=== PATIENT | male | born 1970 | race Caucasian/White ===

== ENCOUNTER 2017-01-30 16:24 | Inpatient (IN) | payer BC ==
--- NOTE | ~2017-01-30 | PREOPHP ---
PreOp History and Physical [facility] [address] [place]. [address] NAME: BEATRICE BARNES : 68 STATUS : DIS IN PAT#: [id number] AGE: 46 ADM/REG DATE : 01/30/17 MR#: [id number] REPORT SERV DATE: 02/05/17 DICTATED BY: GERSON TORRES DATE: 02/01/17 REPORT STATUS : Draft TRANSCRIBED BY: GRAY DATE: 02/01/17 CHIEF COMPLAINT: Intractable back pain. 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 The patient was seen by Josee Huang, physician's front desk assistant, who treated him conservatively. The pain and had an acute flare up and on 01/30/2017 the pain was so intractable he could not stand or walk, could not even get into the wheelchair without maximum assistance. He had some pseudo radiculitis with pain into the thighs, but nothing below the knees. He had no alteration in bowel or bladder function. He has had no falls or trauma. He had no fever, chills, night sweats, or any major recent change in constitutional symptoms. The patient had a stat MRI which showed some disk degeneration and disk protrusions, but nothing causing significant nerve impingement. He was admitted due to severe back pain and also to obtain additional imaging to make sure that there was no proximal compressive pathology that was producing the severe back pain. PAST MEDICAL HISTORY: Hypertension and gastroesophageal reflux disease. He has had multiple esophageal dilations. PAST SURGICAL HISTORY: Appendectomy. CURRENT MEDICATIONS: Lisinopril, tramadol, Nexium. ALLERGIES: NONE. SOCIAL HISTORY: Noted in the chart. See that for detail. FAMILY HISTORY: Unremarkable. REVIEW OF SYSTEMS: Otherwise, negative. PHYSICAL EXAMINATION: GENERAL: He is 6 feet 1 inch, 194 pounds. Alert, cooperative, well oriented. Can usually ambulate independently, although on admission he was in intractable pain. Could not ambulate at all. HEENT: Grossly normal. LUNGS: Clear to auscultation. HEART: Regular and rhythmic. ABDOMEN: Soft with good bowel sounds. No peritoneal signs noted. MUSCULOSKELETAL: The spine itself had no gross deformities. He had no abnormal in the upper extremities. Motor, sensory, reflex exams are normal. Lower extremities, he had proximal weakness, but I think this was pain inhibited. His iliopsoas adductor, abductors were only 3/5, but again I think it is mainly because of pain. His quadriceps gastroc soleus and tibialis anterior all 5/5. Reflexes are 1/4 in the lower extremities, but they are symmetrical. Toes are downgoing. No clonus was noted. No sensory deficits found in the lower extremities. No abnormal behavior is noted. PreOp History and Physical [address] [place]. [address] NAME: BEATRICE BARNES : [birth year] STATUS : DIS IN PAT#: [id number] AGE: 46 ADM/REG DATE : 01/30/17 MR#: [id number] REPORT SERV DATE: 02/05/17 DICTATED BY: GERSON TORRES DATE: 02/01/17 REPORT STATUS : Draft TRANSCRIBED BY: GRAY DATE: 02/01/17 Orthopedically, there was no pain with moving hips, knees, or ankles. There are pulses in all four extremities. No abnormal skin lesions found. ASSESSMENT: Acute intractable low back pain. RECOMMENDATIONS: As listed above. /GRAY Gerson Torres D.O. / [id number] CC: Kurt Gale M.D.
--- NOTE | ~2017-01-30 | DS ---
Discharge Summary [facility] [address] [place]. [address] NAME: BEATRICE BARNES : [birth year] STATUS : DIS IN PAT#: [id number] AGE: 46 ADM/REG DATE : 01/30/17 MR#: [id number] REPORT SERV DATE: 02/05/17 DICTATED BY: GERSON TORRES DATE: 02/01/17 REPORT STATUS : Draft TRANSCRIBED BY: MODL DATE: 02/01/17 ADMISSION DATE: 01/30/2017 DISCHARGE DATE: 02/01/2017 ADMISSION DIAGNOSIS: Acute intractable low back pain. DISCHARGE DIAGNOSIS: Acute intractable low back pain. PROCEDURES: None. CONSULTATIONS: None. Lab and x-ray data in the chart. Briefly, MRI showed disk herniations with left-sided nerve root impingement at C5-6 and C6-7, but no cord compression. HOSPITAL COURSE: The patient was admitted, started on a [employer] pump. Given IV steroid x4 doses. The next days his pain had diminished by a good 50% and he was able to at least sit up at side of the bed, stand, walk to the bathroom. He was seen by Physical Therapy was instructed proper mechanics. On hospital day 2, he was much less. His pain was 75% to 80% better. He was transferring in and out of bed independently, walking to bathroom independently and neurologic exam was normal in both the upper and lower extremities. I reviewed the MRI scans with him. DISPOSITION: He is discharged home with a prescription with Bokoshe 5 mg q.6h p.r.n. for acute pain flare up, Robaxin 500 mg t.i.d. #45, prednisone weaning dose 5 mg over the next seven days and follow up in the office in 1 week. Should be able return to work at that time. We will send him for outpatient physical therapy when he returns to the office. He can have a regular diet. NEO/GRAY Gerson Torres D.O. / [id number]
[~2017-01-30 16:24] MED LIST: PRIN10 PO
[2017-01-30] MEDS ORDERED: NEXIUM40 PO (17:53)
[2017-01-30] MEDS ORDERED: PRIN5 PO (17:53)
[2017-01-30] MEDS ORDERED: ULTRAM50 PO (17:54)
[2017-01-30] MEDS ORDERED: MEDROLPAK4 PO (17:56)
[2017-02-01] MEDS ORDERED: P5 PO (13:32)
[2017-02-01] MEDS ORDERED: NORCO1 TA1 PO (13:33)
[2017-02-01] MEDS ORDERED: METHOC500B PO (13:33)
== END 2017-02-01 14:14 | disposition home or self-care (01) | DRG 552 ==
LOC: 3SO 16:24
DX: M51.16 Intervertebral disc disorders with radiculopathy, lumbar region (principal)
CPT/HCPCS: 72141; 72146; 97161-GP; A9270-GY; J2930